=== PATIENT | male | born 1990 | race Caucasian/White ===

== ENCOUNTER 2019-10-12 03:39 | Emergency (ER) | payer MEDICAID ==
[~2019-10-12] VITALS: Ht 172.7 cm; Wt 95.5 kg
--- NOTE | 2019-10-12 04:08 | NUR ---
PT CAME IN TONIGHT DUE TO CUTTING HIMSELF. PT HAS TWO LEFT FOREARM LACERATIONS ON THE ANTERIOR ASPECT OF ARM. APPROX 2 - 3 INCHES LONG. CLEAN CUTS, NO JAGGED EDGES. PT NAD, STATES "I JUST WANTED TO FEEL SO I CUT MYSELF" PT DENIES ANY SI AT THIS TIME. PT P/W/D, CMS INTACT, SENSATION INTACT. WCTM. WAITING FOR ERP EVAL.
[2019-10-12] MEDS ORDERED: DIPH,PERTUSS(ACELL),TET VAC/PF 0.5 ML IM-VACC ONE ×2 (04:27→04:30)
[2019-10-12] MEDS ORDERED: LIDOCAINE-MPF 1%, 5ML ONE ×2 (04:27→06:53)
[2019-10-12] MEDS ORDERED: LIDOCAINE-MPF 1%, 5ML INFIL ONE (04:30)
--- NOTE | 2019-10-12 04:45 | NUR ---
ALL BELONGING REMOVED AND PLACED INTO 2 BELONGING BAGS IN LOCKER.
[2019-10-12 04:47] LABS: BASOPHILS # (AUTO) 0.08 x10^3/uL (0-0.1); BASOPHILS % (AUTO) 1 % (0-1); EOSINOPHILS # (AUTO) 0.19 x10^3/uL (0-0.4); EOSINOPHILS % (AUTO) 2 % (1-7); LYMPHOCYTES # (AUTO) 2.58 x10^3/uL (1-3.4); LYMPHOCYTES % (AUTO) 31 % (22-44); MD NO; MEAN CORPUSCULAR HEMOGLOBIN 29.2 pg (27.5-34.5); MEAN CORPUSCULAR HGB CONC 32.8 g/dL (33.2-36.2); MONOCYTES # (AUTO) 0.88 x10^3/uL (0.2-0.8); MONOCYTES % (AUTO) 11 % (2-9); NEUTROPHILS # (AUTO) 4.64 x10^3/uL (1.8-6.8); NEUTROPHILS % (AUTO) 56 % (42-75); PLATELET COUNT 324 x10^3/uL (130-400); RED BLOOD COUNT 4.73 x10^6/uL (4.38-5.82); RED CELL DISTRIBUTION WIDTH 12.4 % (9.4-14.8)
[2019-10-12 04:56] LABS: AMPHETAMINE SCREEN, URINE Positive (Negative); BARBITURATE SCREEN, URINE Negative (Negative); BENZODIAZEPINE SCREEN, URINE Negative (Negative); CANNABINOID SCREEN, URINE Negative (Negative); COCAINE SCREEN, URINE Negative (Negative); METHADONE SCREEN, URINE Negative (Negative); OPIATE SCREEN, URINE Positive (Negative)
[2019-10-12 04:58] LABS: ALANINE AMINOTRANSFERASE 81 U/L (12-78); ALBUMIN 4.1 g/dL (3.4-5.0); ANION GAP 5 mmol/L (5-15); CALCIUM 8.7 mg/dL (8.5-10.1); CHLORIDE 107 mmol/L (98-107); CREATININE 0.87 mg/dL (0.7-1.3)
[2019-10-12 05:00] LABS: ALKALINE PHOSPHATASE 94 U/L (45-117); BILIRUBIN,TOTAL 0.4 mg/dL (0.2-1.0); TOTAL PROTEIN 7.5 g/dL (6.4-8.2)
--- NOTE | 2019-10-12 05:01 | NUR ---
REPORT TO SLOAN [place].
--- NOTE | 2019-10-12 05:02 | NUR ---
Pt bedside report from Sharlene rn. This rn to assume care of pt. Resting comfortably on gurney. Nadn. Roller doors in place. Sitter in hallway.
[2019-10-12 05:05] LABS: SALICYLATE LEVEL < 1.7 mg/dL (2.8-20.0)
--- NOTE | 2019-10-12 05:10 | NUR ---
Pt sleeping comfortably. Rr even and unlabored. DEONDRE. Sitter remains in hallway.
--- NOTE | 2019-10-12 05:40 | NUR ---
Hospital bed requested.
--- NOTE | 2019-10-12 06:18 | NUR ---
Pt sleeping comfortably. Rr even and unlabored. DEONDRE. Sitter remains in hallway.
[2019-10-12] MEDS ORDERED: NEOSPORIN OINT. PKT 1 PACKET ONE ×2 (06:50→07:37)
--- NOTE | 2019-10-12 06:55 | NUR ---
RECEIVED REPORT FROM LILIAN. PT CALMLY SLEEPING ON GURNEY, NAD WITH EQUAL CHEST RISE/FALL, NO NEEDS AT THIS TIME, PT REMAINS IN SAFE ENVIRONMENT, SITTER IN VIEW.
--- NOTE | 2019-10-12 07:34 | NUR ---
TP RN: FAB WARNER PT. TO AWAIT EVAL BY PSYCH LITHOGRAPHIC PHOTOGRAPHER APPRENTICE TO DETERMINE LEGAL HOLD STATUS.
--- NOTE | 2019-10-12 08:01 | NUR ---
PT CONTINUES TO CALMLY SLEEP ON GURNEY, NAD WITH EQUAL CHEST RISE/FALL, NO NEEDS AT THIS TIME, PT REMAINS IN SAFE ENVIRONMENT, SITTER IN VIEW.
[2019-10-12 08:31] VITALS: BP 109/75
--- NOTE | 2019-10-12 08:31 | NUR ---
BREAKFAST TRAY GIVEN.
--- NOTE | 2019-10-12 08:58 | NUR ---
BREAK RN: PT RESTING ON ANISH. DEONDRE. SITTER REMAINS AT BEDSIDE. ROOM REMAINS SECURE.
--- NOTE | 2019-10-12 10:03 | NUR ---
PT ATE BREAKFAST, BACK TO SLEEP ON GURNEY, DROWSY BUT RESPONDS APPROP TO STAFF, NAD, COMFORT MEASURES PROVIDED, PT REMAINS IN SAFE ENVIRONMENT, SITTER IN VIEW.
--- NOTE | 2019-10-12 11:02 | NUR ---
PT CALMLY SLEEPING ON GURNEY, NAD WITH EQUAL CHEST RISE/FALL, NO NEEDS AT THIS TIME, PT REMAINS IN SAFE ENVIRONMENT, SITTER IN VIEW.
--- NOTE | 2019-10-12 12:01 | NUR ---
LUNCH TRAY GIVEN, PT UPRIGHT ON GURNEY AWAKE , CALM & COOPERATIVE, SEEN BY PSYCH GENERAL FARM MANAGER (EMELY), RESPONDS APPROP TO STAFF, NAD, COMFORT MEASURES PROVIDED, PT REMAINS IN SAFE ENVIRONMENT, SITTER IN VIEW.
--- NOTE | 2019-10-12 12:30 | NUR ---
Patient given discharge instructions and they have confirmed that they understand the instructions. Patient ambulatory with steady gait.
== END 2019-10-12 12:31 | disposition home or self-care (01) ==
LOC: ED 06:01
DX: S51.812A Laceration without foreign body of left forearm, initial encounter (principal); F11.20 Opioid dependence, uncomplicated; F15.20 Other stimulant dependence, uncomplicated; F33.9 Major depressive disorder, recurrent, unspecified; Z79.899 Other long term (current) drug therapy; X83.8XXA Intentional self-harm by other specified means, initial encounter; Y93.89 Activity, other specified; Y92.89 Other specified places as the place of occurrence of the external cause; Y99.8 Other external cause status
CPT/HCPCS: 12001; 12032; 36415; 80053; 80307; 84443; 85025; 90471; 90715; 99285